=== PATIENT | male | born 1970 | race African-American/Black ===

== ENCOUNTER 2020-01-24 06:59 | Emergency (ER) | payer MEDICAID ==
[~2020-01-24] VITALS: Ht 175.3 cm; Wt 95.3 kg
--- NOTE | 2020-01-24 07:19 | NUR ---
ED Nurse Note: Pt ambulated to ED for HTN med refill. Pt is AOx4, VSS, afebrile on triage.
[2020-01-24 07:20] VITALS: BP 143/96
[2020-01-24] MEDS ORDERED: HYTRIN2 MG PO (07:21)
[2020-01-24] MEDS ORDERED: LISINOPRIL40 MG ORAL (07:21)
[2020-01-24] MEDS ORDERED: AMLODIPINE BESY10 MG ORAL (07:21)
[2020-01-24 07:25] VITALS: BP 143/96
--- NOTE | 2020-01-24 07:25 | NUR ---
ER DISCHARGE NOTE: Patient is cleared to be discharged per ERMD, pt is aox4, on room air, with stable vital signs. pt was given dc and prescription instructions, pt was able to verbalize understanding, pt id band removed. pt is able to ambulate with steady gait. pt took all belongings.
--- NOTE | 2020-01-24 07:26 | Emergency Room Report ---
History of Present Illness General Chief Complaint: Medication Refill Source: Patient Present Illness HPI Patient is a 49-year-old male who presents for medication refill. Patient had run out of multiple medications including medications for his blood pressure as well as his cholesterol medication and for his prostate. He reports having recent incarceration and had no current primary doctor. He denies any current complaints. Allergies: Coded Allergies: No Known Allergies (Unverified , 01/24/20) COVID-19 Screening Contact w/high risk pt: No Recent Travel to affected area: No Experienced COVID-19 symptoms?: No Patient History Past Medical History: see triage record Reviewed Nursing Documentation: PMH: Agreed; PSxH: Agreed Review of Systems All Other Systems: negative except mentioned in HPI Physical Exam Vital Signs Date Time Temp Pulse Resp B/P (MAP) Pulse Ox O2 Delivery O2 Flow Rate FiO2 01/24/20 07:10 97.9 63 19 143/96 (112) 96 Room Air General Appearance: well appearing, no apparent distress, alert, GCS 15 Head: normocephalic, atraumatic ENT: hearing grossly normal, normal voice Neck: full range of motion, supple Respiratory: no respiratory distress, speaking full sentences Cardiovascular #1: normal peripheral pulses, regular rate, rhythm Musculoskeletal: normal inspection, no calf tenderness Neurologic: normal gait Psychiatric: mood/affect normal Skin: no rash Medical Decision Making Diagnostic Impression: Primary Impression: Medication refill ER Course Patient presented for medication refill. Patient does not appear to be any distress and has no acute emergent condition. Patient's medications for blood pressure as well as prostate medications were refilled. Patient was advised to take [id number] aspirin as well as to follow-up with primary care physician regarding medications. He is advised to return if worse. Last Vital Signs Date Time Temp Pulse Resp B/P (MAP) Pulse Ox O2 Delivery O2 Flow Rate FiO2 01/24/20 07:20 97.9 19 143/96 96 Room Air 01/24/20 07:10 63 Status: improved Disposition: HOME, SELF-CARE Condition: Stable Scripts Lisinopril* (LISINOPRIL*) 40 Mg Tablet 40 MG ORAL DAILY, #30 TAB Prov: Elliot Mckinney MD 01/24/20 Terazosin HCl (Terazosin HCl) 2 Mg Capsule 2 MG PO QHS, #30 CAP 0 Refills Prov: Elliot Mckinney MD 01/24/20 Amlodipine Besylate* (AMLODIPINE BESYLATE*) 10 Mg Tablet 10 MG ORAL DAILY, #30 TAB Prov: Elliot Mckinney MD 01/24/20 Patient Instructions: Medicine Refill at the Emergency Department Elliot Mckinney MD Jan 24, 2020 07:26
== END 2020-01-24 07:25 | disposition home or self-care (01) ==
LOC: EMR 07:20
DX: I10 Essential (primary) hypertension (principal); E78.00 Pure hypercholesterolemia, unspecified; Z76.0 Encounter for issue of repeat prescription
CPT/HCPCS: 99282